=== PATIENT | female | born 1990 | race Caucasian/White ===

== ENCOUNTER 2025-08-29 10:02 | Outpatient (REF) | payer BC, SELFPAY ==
[2025-08-29 16:51] LABS: ALT 42 U/L (14-59); AST 36 U/L (15-37); Albumin 4.2 g/dL (3.4-5.0); Alkaline Phosphatase 66 U/L (46-116); Anion Gap 10.6 mmol/L (3-11); BUN 11 mg/dL (7-18); Bilirubin, Total 0.5 mg/dL (0.2-1.0); CO2 25.4 mmol/L (21.0-32.0); Calcium 9.0 mg/dL (8.5-10.1); Chloride 102 mmol/L (98-107); Cholesterol 176 mg/dL (<200); Glucose 87 mg/dL (74-106); HDL Cholesterol 58 mg/dL (>or=50); Potassium 4.6 mmol/L (3.5-5.1); Sodium 138 mmol/L (136-145); Total Protein 8.2 g/dL (6.4-8.2)
== END 2025-08-29 10:03 | disposition home or self-care (01) ==
LOC: NCHCN 10:02
PROVIDERS: Visit Provider Nurse Practitioner Family
DX: Z13.220 Encounter for screening for lipoid disorders (principal)
CPT/HCPCS: 80053; 80061